=== PATIENT | male | born 1965 | race Hispanic/Latino ===

== ENCOUNTER 2018-05-28 09:00 | Outpatient (CLI) | payer MEDICARE | END 2018-05-28 09:01 | disposition home or self-care (01) | LOC: LAB 09:00 | DX: G35 Multiple sclerosis (principal) ==

== ENCOUNTER 2018-05-29 11:27 | Outpatient (CLI) | payer MEDICARE | END 2018-05-29 11:28 | disposition home or self-care (01) | LOC: RAD 11:28 ==

== ENCOUNTER 2018-05-31 07:38 | Outpatient (CLI) | payer MEDICARE | END 2018-05-31 07:39 | disposition home or self-care (01) | LOC: RAD 07:38 ==